=== PATIENT | male | born 1990 | race Caucasian/White ===

== ENCOUNTER 2024-08-23 17:12 | Emergency (ER) | payer BC ==
[~2024-08-23] VITALS: Ht 188 cm; Wt 115.7 kg
[2024-08-23 17:44] VITALS: PULSE 105; RESP 18; TEMP 98.5; O2SAT 96
[2024-08-23] MEDS ORDERED: CEPHALEXIN500 MG PO (17:53)
[2024-08-23] MEDS ORDERED: MUPIROCIN22 GM TOP (17:55)
== END 2024-08-23 18:18 | disposition home or self-care (01) ==
LOC: FSED 17:24
DX: B65.3 Cercarial dermatitis (principal); L03.032 Cellulitis of left toe; G35 Multiple sclerosis
CPT/HCPCS: 99283